=== PATIENT | female | born 1990 | race Caucasian/White ===

== ENCOUNTER → 2020-05-28 | Outpatient (CLI) | payer MEDICAID | END | disposition home or self-care (01) | LOC: LAB 08:05 | PROVIDERS: ATTEND Obstetrics & Gynecology | DX: Z11.59 Encounter for screening for other viral diseases (principal) | CPT/HCPCS: C9803; U0003 ==

== ENCOUNTER 2020-06-01 11:18 | Inpatient (IN) | payer MEDICAID, OTHER ==
[~2020-06-01] VITALS: Ht 165.1 cm; Wt 122.0 kg
[2020-06-01] MEDS: MAGNESIUM/ALUMINUM HYDROXIDE/SIMETHICONE 30ML UDC PO SCH ×2 (09:26→21:03)
[2020-06-01] MEDS ORDERED: CARBOPROST TROMETHAMINE 250 MCG/ML AMPUL IM PRN (11:45)
[2020-06-01] MEDS ORDERED: METHYLERGONOVINE MALEATE 0.2 MG/ML IM PRN (11:45)
[2020-06-01] MEDS ORDERED: CITRIC ACID/SODIUM CITRATE SOLN 30ML UDC PO ONE (12:15)
[2020-06-01 12:27] LABS: BASOPHILS % 0.7 % (0.0-2.0); HEMATOCRIT. 38.4 % (36.0-48.0); LYMPHOCYTES % 16.6 % (20.0-50.0); MEAN CORPUSCULAR VOLUME 88.9 fL (81.0-99.0); MEAN PLATELET VOLUME 8.9 fl (7.4-10.4); MONOCYTES % 6.8 % (2.0-8.0); NEUTROPHILS % 74.9 % (40.0-76.0); PLATELET 211 x1000/uL (130-400); RED BLOOD CELL COUNT 4.32 mill/uL (4.2-5.4); RED CELL DISTRIBUTION WIDTH 16.1 % (11.6-14.6)
[2020-06-01 12:36] LABS: CLARITY URINE CLEAR (CLEAR); COLOR URINE YELLOW (YELLOW); KETONES URINE NEGATIVE (NEGATIVE); LEUKOCYTE ESTERASE URINE NEGATIVE (NEGATIVE); NITRITE URINE NEGATIVE (NEGATIVE); OCCULT BLOOD URINE NEGATIVE (NEGATIVE); PROTEIN URINE TRACE (NEGATIVE); SPECIFIC GRAVITY URINE 1.014 (1.005-1.030)
[2020-06-01 12:38] LABS: INR 0.9; PARTIAL THROMBOPLASTIN TIME 27.1 sec (23.4-31.0); PROTHROMBIN TIME 9.7 sec (9.6-11.0)
[2020-06-01] MEDS: LACTATED RINGERS 1,000 ML IV SCH ×2 (13:46→21:13)
[2020-06-01 13:57] LABS: *AMPHETAMINES SCREEN URINE NEGATIVE (NEGATIVE); *BARBITURATES SCREEN URINE NEGATIVE (NEGATIVE); *BENZODIAZEPINES SCREEN URINE NEGATIVE (NEGATIVE); *COCAINE SCREEN URINE NEGATIVE (NEGATIVE); METHADONE URINE SCREEN NEGATIVE (NEGATIVE); OPIATES URINE SCREEN NEGATIVE (NEGATIVE)
[2020-06-01 13:58] LABS: CANNABINOID URINE SCREEN NEGATIVE (NEGATIVE); PHENCYCLIDINE URINE SCREEN NEGATIVE (NEGATIVE)
[2020-06-01 14:00] LABS: HEPATITIS B SURFACE ANTIGEN NEGATIVE
[2020-06-01] MEDS ORDERED: DEXT 5%/LR + PITOCIN 20UNITS/L 1,000 ML IV SCH (14:55)
[2020-06-01] MEDS ORDERED: RHO(D) IMMUNE GLOBULIN 300 MCG/SYR IM PRN (15:00)
[2020-06-01] MEDS ORDERED: DIPHENHYDRAMINE 25MG CAPSULE PO PRN (15:00)
[2020-06-01] MEDS ORDERED: BISACODYL 10MG SUPP PR PRN (15:00)
[2020-06-01] MEDS ORDERED: ONDANSETRON HCL 4MG/2ML INJ IV PRN (15:00)
[2020-06-01] MEDS ORDERED: LANOLIN OINT 7GM TUBE TOP PRN (15:00)
[2020-06-01] MEDS ORDERED: HEMORRHOIDAL SUPP PR PRN (15:00)
[2020-06-01] MEDS ORDERED: HYDROCODONE/ACETAMINOPHEN 10/325MG TABLET PO PRN (15:00)
[2020-06-01] MEDS ORDERED: BUTORPHANOL TARTRATE 2 MG/ML VIAL IV PRN (15:30)
[2020-06-01] MEDS ORDERED: DIPHENHYDRAMINE 50MG/ML VIAL IV PRN (15:30)
[2020-06-01] MEDS ORDERED: NALOXONE HCL 0.4 MG/ML 1ML VIAL IV PRN (15:30)
[2020-06-01 18:15] VITALS: BP 123/69
[2020-06-01] MEDS: KETOROLAC 30MG/ML VIAL IV SCH (18:15)
[2020-06-01 19:30] VITALS: BP 112/75
[2020-06-01] MEDS: SIMETHICONE 80MG TABLET CHEW PO SCH (21:04)
[2020-06-01] MEDS: DOCUSATE SODIUM 100MG CAPSULE PO SCH (21:04)
[2020-06-02 04:00] VITALS: BP 122/63
[2020-06-02] MEDS: KETOROLAC 30MG/ML VIAL IV SCH ×2 (04:20→10:21)
[2020-06-02] MEDS: LACTATED RINGERS 1,000 ML IV SCH (04:37)
[2020-06-02 06:10] LABS: BASOPHILS % 0.6 % (0.0-2.0); EOSINOPHILS % 0.7 % (0.0-5.0); HEMOGLOBIN. 10.7 g/dL (12.0-16.0); MEAN CORPUSCULAR HEMOGLOBIN 29.8 pg (28.0-32.0); MEAN CORPUSCULAR VOLUME 88.7 fL (81.0-99.0); MEAN PLATELET VOLUME 8.4 fl (7.4-10.4); MONOCYTES % 7.9 % (2.0-8.0); NEUTROPHILS % 78.8 % (40.0-76.0); PLATELET 163 x1000/uL (130-400); RED BLOOD CELL COUNT 3.58 mill/uL (4.2-5.4); RED CELL DISTRIBUTION WIDTH 15.9 % (11.6-14.6)
[2020-06-02 07:28] LABS: HEMATOCRIT. 31.7 % (36.0-48.0)
[2020-06-02 08:00] VITALS: BP 109/56
[2020-06-02] MEDS: SIMETHICONE 80MG TABLET CHEW PO SCH ×4 (09:26→20:53)
[2020-06-02] MEDS: FERROUS SULFATE 325MG TABLET PO SCH ×3 (09:26→15:30)
[2020-06-02] MEDS: PRENATAL VIT/FE FUMARATE/FA TABLET PO SCH (09:26)
[2020-06-02] MEDS ORDERED: KETOROLAC 30MG/ML VIAL IV SCH (10:15)
[2020-06-02] MEDS: MAGNESIUM/ALUMINUM HYDROXIDE/SIMETHICONE 30ML UDC PO SCH ×3 (12:56→20:52)
[2020-06-02] MEDS: IBUPROFEN 800MG TABLET PO SCH ×2 (15:30→21:00)
[2020-06-02 16:12] VITALS: BP 130/82
[2020-06-02 19:30] VITALS: BP 135/75
[2020-06-02] MEDS: DOCUSATE SODIUM 100MG CAPSULE PO SCH (20:52)
[2020-06-03 03:51] VITALS: BP 124/72
[2020-06-03] MEDS: IBUPROFEN 800MG TABLET PO SCH ×2 (05:44→11:42)
[2020-06-03] MEDS: FERROUS SULFATE 325MG TABLET PO SCH ×2 (07:30→12:18)
[2020-06-03] MEDS: MAGNESIUM/ALUMINUM HYDROXIDE/SIMETHICONE 30ML UDC PO SCH ×2 (07:30→12:18)
[2020-06-03 08:00] VITALS: BP 128/75
[2020-06-03] MEDS: SIMETHICONE 80MG TABLET CHEW PO SCH (08:00)
[2020-06-03] MEDS: PRENATAL VIT/FE FUMARATE/FA TABLET PO SCH (09:00)
== END 2020-06-03 12:40 | disposition home or self-care (01) | DRG 540 ==
LOC: 8 EST LDRP 11:18 → 8EST 18:37
PROVIDERS: ADMIT Obstetrics & Gynecology; ATTEND Obstetrics & Gynecology
PROC: 10D00Z1 Extraction of Products of Conception, Low, Open Approach (ICD-10-PCS; principal; 2020-06-02)
DX: O34.211 Maternal care for low transverse scar from previous cesarean delivery (principal); Z37.0 Single live birth; Z3A.39 39 weeks gestation of pregnancy; Z88.5 Allergy status to narcotic agent
CPT/HCPCS: 36415; 80305; 81003; 85025; 86592; 86703; 86762; 86850; 86900; 86920; 87340; 88307; J0690; J1200; J1885; J2274; J2370; J2405; J2590; J3010; J3490